=== PATIENT | female | born 1980 | race Caucasian/White ===

== ENCOUNTER 2020-01-05 19:40 | Observation (INO) ==
[2020-01-05] MEDS ORDERED: Ondansetron 4 MG/2 ML VIAL IVP ONE (19:57)
[2020-01-05] MEDS ORDERED: 0.9 % Sodium Chloride 1,000 ML IVC ONE (19:57)
[2020-01-05 20:11] LABS: Basophils % 0.5 %; Eosinophils % 0.4 %; Hematocrit 40.8 % (35.3-44.9); Hemoglobin 13.7 g/dL (11.5-15.4); Immature Granulocytes % 0.2 % (0-4); Lymphocytes # 2.4 K/mcL (0.6-4.6); Lymphocytes % 28.9 %; Mean Corpuscular HGB Conc 33.6 g/dL (31.6-35.5); Mean Corpuscular Hemoglobin 31.6 pg (28.0-33.3); Mean Corpuscular Volume 94.2 fL (83.0-100.0); Monocytes # 0.6 K/mcL (0.0-1.3); Monocytes % 7.4 %; Neutrophils # 5.3 K/mcL (1.6-8.9); Platelet Count 238 K/mcL (140-400); Red Blood Count 4.33 M/mcL (3.82-4.97); Red Cell Distribution Width 12.1 % (11.5-14.5); Segmented Neutrophils % 62.6 %; White Blood Count 8.4 K/mcL (4.3-11.1)
[2020-01-05 20:26] LABS: BUN/Creatinine Ratio 20 (6-26); Blood Urea Nitrogen 12 mg/dL (6-20); Calcium 8.8 mg/dL (8.6-10.3); Carbon Dioxide 27 mEq/L (23-29); Chloride 103 mEq/L (98-107); Glucose 121 mg/dL (70-105); Osmolality,Calculated 287 (280-300); Phosphorous 3.4 mg/dL (2.7-4.5); Sodium 138 mEq/L (136-145); eGFR For African Americans > 60 (> 60); eGFR For Non-African Americans > 60 (> 60)
[2020-01-05 21:29] LABS: Acetaminophen < 10 mcg/mL (10-20); Salicylate < 2.5 mg/dL (15.0-30.0)
[2020-01-05 21:31] LABS: Troponin I < 0.03 ng/mL (< 0.04)
[2020-01-05 21:43] LABS: Thyroid Stimulating Hormone 0.251 mcIU/mL (0.340-5.600)
[2020-01-05 22:22] LABS: Bacteria,Urine Few per hpf (None-Few); Bilirubin,Urine Negative (Negative); Blood,Urine Negative (Negative); Clarity,Urine Clear (Clear); Color,Urine Yellow (Yellow); Glucose,Urine (UA) Normal (Normal); Hyaline Casts,Urine Few per lpf (None Seen); Ketones,Urine Trace mg/dL (Negative); Leukocyte Esterase,Urine Moderate (Negative); Mucus,Urine Few per lpf (None-Few); Nitrite,Urine Negative (Negative); Protein,Urine 50 mg/dL (Neg-Trace); RBC,Urine 0-3 per hpf (0-3); Renal Epithelial Cells,Urine Few per hpf (None-Few); Specific Gravity,Urine > 1.030 (1.010-1.025); Squamous Epithelial Cell,Urine Moderate per hpf (None-Few); Transitional Epi Cells,Urine Few per hpf (None-Few)
[2020-01-05 22:27] LABS: Amphetamine Screen,Urine Negative ng/mL (Cutoff=1000); Barbiturate Screen,Urine Negative ng/mL (Cutoff=200); Benzodiazepines Screen,Urine Negative ng/mL (Cutoff=200); Cannabinoid Screen,Urine Negative ng/mL (Cutoff = 50); Cocaine Screen,Urine Negative ng/mL (Cutoff= 300); Opiate Screen,Urine Negative ng/mL (Cutoff=300); Phencyclidine Screen,Urine Negative ng/mL (Cutoff=25)
[2020-01-05] MEDS ORDERED: Ringers Solution, Lactated 1,000 ML IVC SCH (23:45)
[2020-01-05] MEDS ORDERED: Naloxone 0.4 MG/ML INJ IVP PRN (23:51)
[2020-01-05] MEDS ORDERED: Ondansetron 4 MG/2 ML VIAL IVP PRN (23:51)
[2020-01-06] MEDS ORDERED: Ringers Solution, Lactated 1,000 ML IVC ONE ×2 (00:42→01:45)
[2020-01-06] MEDS ORDERED: Perflutren Lipid Microsphere 1.3 ML in 0.9 % Sodium Chloride 8.7 ML IVP PRN (01:08)
[2020-01-06] MEDS ORDERED: 0.9 % Sodium Chloride 1,000 ML IVC ONE (01:14)
[2020-01-06 01:38] LABS: Creatine Kinase 153 Units/L (30-223); Triiodothyronine (T3) Free 2.48 pg/mL (2.50-3.90)
[2020-01-06] MEDS ORDERED: Ringers Solution, Lactated 1,000 ML IVC SCH (01:45)
[2020-01-06] MEDS: 0.9 % Sodium Chloride 1,000 ML IVC SCH ×3 (02:45→21:59)
[2020-01-06] MEDS ORDERED: Aspirin Enteric Coated 325 MG Tablet PO ONE (04:43)
[2020-01-06] MEDS: *HR* Heparin 5,000 UNIT/ML VIAL SQ SCH ×3 (05:46→21:21)
[2020-01-06 06:26] LABS: Basophils % 0.4 %; Eosinophils # 0.3 K/mcL (0.0-0.6); Eosinophils % 4.5 %; Immature Granulocytes % 0.2 % (0-4); Lymphocytes # 2.5 K/mcL (0.6-4.6); Lymphocytes % 45.8 %; Mean Corpuscular HGB Conc 32.6 g/dL (31.6-35.5); Mean Corpuscular Hemoglobin 31.4 pg (28.0-33.3); Mean Corpuscular Volume 96.4 fL (83.0-100.0); Mean Platelet Volume 10.8 fL (9.4-12.4); Monocytes # 0.5 K/mcL (0.0-1.3); Monocytes % 8.1 %; Neutrophils # 2.3 K/mcL (1.6-8.9); Platelet Count 175 K/mcL (140-400); Red Blood Count 3.63 M/mcL (3.82-4.97); Red Cell Distribution Width 12.3 % (11.5-14.5); White Blood Count 5.6 K/mcL (4.3-11.1)
[2020-01-06 06:28] LABS: Hemoglobin 11.4 g/dL (11.5-15.4)
[2020-01-06 06:41] LABS: Alanine Aminotransferase 10 Units/L (7-52); Albumin 3.2 g/dL (3.5-5.7); Albumin/Globulin Ratio 1.5 (1.1-2.2); Alkaline Phosphatase 54 Units/L (34-104); Aspartate Amino Transferase 13 Units/L (13-39); BUN/Creatinine Ratio 21 (6-26); Bilirubin,Total 0.5 mg/dL (0.3-1.0); Blood Urea Nitrogen 10 mg/dL (6-20); Calcium 7.7 mg/dL (8.6-10.3); Carbon Dioxide 30 mEq/L (23-29); Chloride 107 mEq/L (98-107); Chol/HDL Ratio 3.4 (0-4.9); Cholesterol 116 mg/dL (< 200); Globulin 2.1 g/dL (2.4-3.5); Glucose 115 mg/dL (70-105); HDL Cholesterol 34 mg/dL (40-59); LDL Cholesterol,Calculated 73 mg/dL (< 100); Osmolality,Calculated 288 (280-300); Potassium 3.5 mEq/L (3.5-5.1); Sodium 139 mEq/L (136-145); Total Protein 5.3 g/dL (6.4-8.9); Triglycerides 45 mg/dL (< 150); eGFR For African Americans > 60 (> 60); eGFR For Non-African Americans > 60 (> 60)
[2020-01-06 06:46] LABS: INR 1.3; Prothrombin Time 14.6 Seconds (9.4-12.1)
[2020-01-06 07:04] LABS: Folate 16.3 ng/mL (3.0-16.0)
[2020-01-06] MEDS: Sucralfate 1 GM TABLET PO SCH ×2 (08:06→21:22)
[2020-01-06] MEDS ORDERED: Aspirin Enteric Coated 325 MG Tablet PO SCH (09:00)
[2020-01-06] MEDS: *HR* Buprenorphine HCl 8 MG TAB.SUBL SL SCH ×2 (09:36→21:20)
[2020-01-07] MEDS: 0.9 % Sodium Chloride 1,000 ML IVC SCH (05:25)
[2020-01-07] MEDS: *HR* Heparin 5,000 UNIT/ML VIAL SQ SCH (05:36)
[2020-01-07 05:53] LABS: Basophils % 0.6 %; Eosinophils # 0.2 K/mcL (0.0-0.6); Eosinophils % 3.6 %; Hematocrit 36.2 % (35.3-44.9); Hemoglobin 11.8 g/dL (11.5-15.4); Immature Granulocytes % 0.2 % (0-4); Lymphocytes # 2.5 K/mcL (0.6-4.6); Lymphocytes % 48.5 %; Mean Corpuscular HGB Conc 32.6 g/dL (31.6-35.5); Mean Corpuscular Hemoglobin 31.1 pg (28.0-33.3); Mean Corpuscular Volume 95.5 fL (83.0-100.0); Mean Platelet Volume 10.1 fL (9.4-12.4); Monocytes # 0.4 K/mcL (0.0-1.3); Monocytes % 7.5 %; Platelet Count 162 K/mcL (140-400); Red Blood Count 3.79 M/mcL (3.82-4.97); Red Cell Distribution Width 12.1 % (11.5-14.5); Segmented Neutrophils % 39.6 %; White Blood Count 5.1 K/mcL (4.3-11.1)
[2020-01-07] MEDS ORDERED: Regadenoson 0.4 MG/5 ML SYRINGE IVP ONE (06:10)
[2020-01-07 06:13] LABS: BUN/Creatinine Ratio 16 (6-26); Blood Urea Nitrogen 9 mg/dL (6-20); Calcium 7.9 mg/dL (8.6-10.3); Carbon Dioxide 28 mEq/L (23-29); Chloride 108 mEq/L (98-107); Glucose 85 mg/dL (70-105); Magnesium 1.7 mg/dL (1.6-2.6); Osmolality,Calculated 286 (280-300); Potassium 3.9 mEq/L (3.5-5.1); Sodium 139 mEq/L (136-145); eGFR For African Americans > 60 (> 60); eGFR For Non-African Americans > 60 (> 60)
[2020-01-07] MEDS ORDERED: predniSONE 20 MG TABLET PO SCH (09:00)
[2020-01-07] MEDS: Sucralfate 1 GM TABLET PO SCH (09:26)
[2020-01-07] MEDS: *HR* Buprenorphine HCl 8 MG TAB.SUBL SL SCH (09:26)
[2020-01-07 11:12] VITALS: BP 118/70
== END 2020-01-07 15:17 | disposition home or self-care (01) ==
LOC: EMEROOARM 19:40 → 3BNU 19:40 → SUATTDRO 01-06 00:23 → 3BNU 01-06 00:52
PROVIDERS: ADMIT Family Medicine; ATTEND Internal Medicine